=== PATIENT | male | born 1955 | race Caucasian/White ===

== ENCOUNTER 2017-01-03 11:49 | Outpatient (CLI) | payer OTHER ==
--- NOTE | 2017-01-03 12:49 | DIAGNOSTIC IMAGING REPORT ---
PROCEDURE: XR CHEST 2 VIEW INDICATION: R SHOULDER PAIN, SMOKER WEIGHT LOSS TECHNIQUE: PA and lateral view. COMPARISON: None. FINDINGS: Lungs are clear. Heart size, mediastinum and pulmonary vessels are normal. Tortuous aorta. Bony thorax is unremarkable. IMPRESSION: 1. Negative chest.
--- NOTE | 2017-01-03 12:53 | DIAGNOSTIC IMAGING REPORT ---
PROCEDURE: XR SHOULDER 2 OR MORE VW-RIGHT INDICATION: R SHOULDER PAIN TECHNIQUE: Three views. COMPARISON: None. FINDINGS: Moderate AC joint degenerative changes with inferior spurring resulting in impingement. No fracture or dislocation. No soft tissue calcifications. IMPRESSION: 1. Moderate AC joint degenerative changes with impingement.
== END 2017-01-03 23:00 | disposition home or self-care (01) ==
LOC: XR SRH 11:49
DX: R63.4 Abnormal weight loss (principal); F17.200 Nicotine dependence, unspecified, uncomplicated; M75.41 Impingement syndrome of right shoulder; M19.011 Primary osteoarthritis, right shoulder

== ENCOUNTER 2017-01-13 16:50 | Outpatient (CLI) | payer OTHER ==
--- NOTE | 2017-01-13 18:00 | DIAGNOSTIC IMAGING REPORT ---
PROCEDURE: XR CERVICAL SPINE 4 OR 5 VIEW INDICATION: NECK AND BACK PAIN TECHNIQUE: Five views. COMPARISON: None. FINDINGS: There is severe spondylosis at C4-5 C5-6 and C6-7. There are large posterior osteophytic ridges at these levels. There is also bilateral foraminal impingement at these levels. IMPRESSION: 1. Severe spondylosis C4-C7.
== END 2017-01-13 23:00 ==
LOC: XR SRH 16:50
DX: M47.812 Spondylosis without myelopathy or radiculopathy, cervical region (principal)